=== PATIENT | female | born 1970 | race African-American/Black ===

== ENCOUNTER 2021-02-27 17:41 | Emergency (ER) | payer SELFPAY ==
[~2021-02-27] VITALS: Ht 162.6 cm; Wt 89.1 kg
[2021-02-27 20:15] VITALS: BP 139/92; PULSE 73; TEMP 98
== END 2021-02-27 20:15 | disposition home or self-care (01) ==
LOC: COL.ER 17:41
DX: S50.01XA Contusion of right elbow, initial encounter (principal); S80.01XA Contusion of right knee, initial encounter; S49.91XA Unspecified injury of right shoulder and upper arm, initial encounter; M54.50 Low back pain, unspecified; W01.0XXA Fall on same level from slipping, tripping and stumbling without subsequent striking against object, initial encounter; Y93.01 Activity, walking, marching and hiking; Y92.001 Dining room of unspecified non-institutional (private) residence as the place of occurrence of the external cause; Y99.0 Civilian activity done for income or pay